=== PATIENT | male | born 1950 | race Caucasian/White ===

== ENCOUNTER 2022-01-17 07:00 | Observation (INO) | payer MEDICARE ==
[2022-01-13 11:00] VITALS: BMI 29.8
[2022-01-17] MEDS ORDERED: Vancomycin HCl 1.5 GM in Sodium Chloride 0.9% 250 ML 300 ML IVPB SCH (08:00)
[2022-01-17] MEDS ORDERED: Tranexamic Acid 1,000 MG/10 ML VIAL ONE (08:05)
[2022-01-17] MEDS ORDERED: Sodium Chloride 0.9% 100 ML ONE (08:05)
[2022-01-17] MEDS ORDERED: Midazolam HCl 2 mg/2 ml Vial ONE ×2 (08:41→09:10)
[2022-01-17] MEDS ORDERED: Fentanyl 100 MCG/2 ML VIAL ONE ×6 (09:06→12:53)
[2022-01-17] MEDS ORDERED: ceFAZolin (BATCH) 2 GM/100 ML BAG ONE (09:11)
[2022-01-17] MEDS ORDERED: Bupivacaine 0.25% HCL 30 ML VIAL ONE (09:11)
[2022-01-17] MEDS ORDERED: Ketorolac Tromethamine 30 MG/ML VIAL ONE (09:23)
[2022-01-17] MEDS ORDERED: Dexamethasone 20 MG/5 ML VIAL ONE (09:23)
[2022-01-17] MEDS ORDERED: Ropivacaine 0.5% HCl/PF (150 MG/30 ML VIAL) ONE (09:23)
[2022-01-17] MEDS ORDERED: Lidocaine 1% PF 5 ML VIAL ONE (09:23)
[2022-01-17] MEDS ORDERED: Ondansetron PF 4 MG/2 ML Vial ONE (09:23)
[2022-01-17] MEDS ORDERED: Promethazine HCl 25 MG/ML VIAL IM PRN ×3 (10:00→10:58)
[2022-01-17] MEDS ORDERED: HYDROcodone/Acetaminophen 10/325 mg Tablet PO PRN ×2 (10:00→10:53)
[2022-01-17] MEDS ORDERED: Ropivacaine 0.2% 550 ML 550 ML NERVE BLCK SCH (10:00)
[2022-01-17] MEDS ORDERED: Zolpidem Tartrate 5 MG TAB PO PRN ×3 (10:00→11:38)
[2022-01-17] MEDS ORDERED: Ondansetron PF 4 MG/2 ML Vial IVP PRN ×2 (10:00→10:52)
[2022-01-17] MEDS ORDERED: traMADol HCl 50 MG TAB PO PRN ×2 (10:00)
[2022-01-17] MEDS ORDERED: diphenhydrAMINE 25 MG CAP PO PRN (10:52)
[2022-01-17] MEDS ORDERED: Acetaminophen 325 MG TAB PO PRN (10:52)
[2022-01-17] MEDS ORDERED: Ondansetron HCl/PF 4 MG/2 ML Vial IVP PRN (10:58)
[2022-01-17] MEDS ORDERED: Promethazine HCl 25 MG/ML VIAL IVPB PRN (10:58)
[2022-01-17] MEDS ORDERED: HYDROmorphone 2 MG/ML VIAL SLOW IVP PRN (10:58)
[2022-01-17] MEDS ORDERED: HYDROmorphone 0.5 MG/0.5 ML SYRINGE ONE ×4 (11:25→12:23)
[2022-01-17] MEDS ORDERED: Dextrose 5% in Water 1,000 ML IV PRN (11:45)
[2022-01-17] MEDS ORDERED: Dextrose 50% Abboject 50 ML SYRINGE IVP PRN (11:45)
[2022-01-17] MEDS: HumaLOG 300 UNITS/3 ML VIAL SC SCH ×2 (13:54→17:51)
[2022-01-17] MEDS: Sodium Chloride 0.9% 1,000 ML IV SCH ×2 (14:00→20:05)
[2022-01-17] MEDS: HYDROcodone/Acetaminophen 10/325 mg Tablet PO PRN ×3 (14:01→23:08)
[2022-01-17] MEDS: CEFAZOLIN 2 GM, Admixture Fee 1 EACH in Sodium Chloride 0.9% 100 ML IVPB SCH (17:20)
[2022-01-17] MEDS: Fentanyl 100 MCG/2 ML VIAL SLOW IVP PRN ×2 (20:02→21:13)
[2022-01-17] MEDS: Aspirin 81 mg Enteric Coated Tablet PO SCH (20:05)
[2022-01-17] MEDS: Atorvastatin Calcium 20 MG TAB PO SCH (20:05)
[2022-01-17] MEDS ORDERED: Senokot 8.6 MG TAB PO SCH (21:45)
[2022-01-18] MEDS ORDERED: hydrALAZINE 20 MG/ML VIAL SLOW IVP PRN (00:32)
[2022-01-18] MEDS ORDERED: Labetalol HCl 100 MG/20 ML VIAL SLOW IVP PRN (01:03)
[2022-01-18] MEDS: CEFAZOLIN 2 GM, Admixture Fee 1 EACH in Sodium Chloride 0.9% 100 ML IVPB SCH (02:13)
[2022-01-18] MEDS: Fentanyl 100 MCG/2 ML VIAL SLOW IVP PRN (02:13)
[2022-01-18 03:27] LABS: Bacteria/HPF None Seen HPF (None Seen); Bilirubin Negative (Negative); Blood, Urine Negative (Negative); Clarity Clear (Clear); Glucose, Urine (Dipstick) 200 mg/dL (Negative); Ketone, Urine Negative (Negative); Leukocyte Negative Leu/uL (Negative); Nitrite Negative (Negative); Protein, Urine (Dipstick) Negative (Neg-Trace); Specific Gravity, Urine 1.024 (1.002-1.036); Squamous Epithelial None Seen HPF (0-3); Urobilinogen Normal mg/dL (Less than 2); WBC/HPF 0-3 HPF (0-3)
[2022-01-18 03:30] LABS: Urine Culture Reflex No No
[2022-01-18] MEDS ORDERED: diphenhydrAMINE 25 MG CAP PO PRN (03:30)
[2022-01-18] MEDS ORDERED: Ondansetron PF 4 MG/2 ML Vial IVP PRN (03:30)
[2022-01-18] MEDS ORDERED: Zolpidem Tartrate 5 MG TAB PO PRN (03:30)
[2022-01-18] MEDS ORDERED: diphenhydrAMINE 50 MG/ML VIAL IM/IV PRN (03:30)
[2022-01-18] MEDS ORDERED: Promethazine HCl 25 MG/ML VIAL IM PRN (03:30)
[2022-01-18] MEDS ORDERED: Naloxone HCl 0.4 mg/ml Vial IV PRN (03:30)
[2022-01-18] MEDS: Fentanyl CADD 100 ML IVPB SCH ×2 (03:48→21:23)
[2022-01-18 05:15] LABS: Hemoglobin 11.4 g/dL (14.0-18.0); Mean Corpuscular HGB CONC 33.8 g/dL (32.0-36.0); Mean Corpuscular Hemoglobin 31.6 pg (27.0-31.0); Mean Corpuscular Volume 93.6 fL (78.0-98.0); Mean Platelet Volume 7.9 fL (7.4-10.4); Platelet Count 78 thou/uL (130-400); RBC Distribution Width 11.6 % (11.5-14.5); White Blood Cell (WBC) Count 8.1 thou/uL (4.8-10.8)
[2022-01-18] MEDS: Sodium Chloride 0.9% 1,000 ML IV SCH ×3 (05:26→23:44)
[2022-01-18] MEDS ORDERED: HumaLOG 300 UNITS/3 ML VIAL SC PRN (06:15)
[2022-01-18] MEDS: HumaLOG 300 UNITS/3 ML VIAL SC PRN ×3 (06:22→18:19)
[2022-01-18] MEDS ORDERED: Senokot 8.6 MG TAB PO SCH (09:00)
[2022-01-18] MEDS ORDERED: Senokot S 8.6-50 MG TAB PO SCH (09:00)
[2022-01-18] MEDS: HumuLIN 70/30 (300 UNITS/3 ML VIAL) SC SCH (09:59)
[2022-01-18] MEDS: Meloxicam 7.5 MG TAB PO SCH (10:01)
[2022-01-18] MEDS: Ferrous Gluconate 324 MG TAB PO SCH ×2 (10:01→21:22)
[2022-01-18] MEDS: Multivitamin W/ Minerals 1 TAB PO SCH (10:01)
[2022-01-18] MEDS: Alogliptin 25 MG TAB PO SCH (10:01)
[2022-01-18] MEDS: Aspirin 81 mg Enteric Coated Tablet PO SCH ×2 (10:02→21:23)
[2022-01-18] MEDS: HumaLOG 300 UNITS/3 ML VIAL SC SCH ×3 (10:02→18:19)
[2022-01-18] MEDS: Acetaminophen 325 MG TAB PO SCH ×2 (18:17→23:43)
[2022-01-18] MEDS: Atorvastatin Calcium 20 MG TAB PO SCH (21:23)
[2022-01-19] MEDS: Acetaminophen 325 MG TAB PO SCH (05:29)
[2022-01-19 05:30] LABS: #Eosinphils 0.1 thou/uL (0.0-0.7); #Monocytes 0.7 thou/uL (0.11-0.59); #Neutrophils 6.1 thou/uL (1.40-6.50); %Basophils 0.1 % (0.0-1.0); %Eosinophils 1.2 % (0.0-10.0); %Lymphocytes 12.4 % (21.0-51.0); %Monocytes 9.3 % (0.0-10.0); %Neutrophils 77.1 % (42.0-75.0); Hemoglobin 10.6 g/dL (14.0-18.0); Mean Corpuscular HGB CONC 33.8 g/dL (32.0-36.0); Mean Corpuscular Hemoglobin 31.6 pg (27.0-31.0); Mean Corpuscular Volume 93.6 fL (78.0-98.0); Mean Platelet Volume 7.7 fL (7.4-10.4); Platelet Count 82 thou/uL (130-400); RBC Distribution Width 11.7 % (11.5-14.5); Red Blood Cell (RBC) Count 3.34 mill/uL (4.70-6.10); White Blood Cell (WBC) Count 7.9 thou/uL (4.8-10.8)
[2022-01-19] MEDS: HumaLOG 300 UNITS/3 ML VIAL SC PRN (05:35)
[2022-01-19] MEDS: Meloxicam 7.5 MG TAB PO SCH (08:53)
[2022-01-19] MEDS: Aspirin 81 mg Enteric Coated Tablet PO SCH (08:53)
[2022-01-19] MEDS: Multivitamin W/ Minerals 1 TAB PO SCH (08:53)
[2022-01-19] MEDS: Ferrous Gluconate 324 MG TAB PO SCH (08:54)
[2022-01-19] MEDS: Alogliptin 25 MG TAB PO SCH (08:55)
[2022-01-19] MEDS: HumuLIN 70/30 (300 UNITS/3 ML VIAL) SC SCH (09:05)
[2022-01-19] MEDS: HumaLOG 300 UNITS/3 ML VIAL SC SCH (09:33)
[2022-01-19] MEDS ORDERED: HYDROcodone/Acetaminophen 10/325 mg Tablet PO PRN (09:58)
[2022-01-19 11:33] VITALS: BP 156/74; TEMP 98.8
== END 2022-01-19 11:45 | disposition home or self-care (01) ==
LOC: SDC 07:00 → SURG A 10:52 → SDC 01-18 01:03 → SURG A 01-18 01:03
PROVIDERS: ADMIT Orthopaedic Surgery; ATTEND Orthopaedic Surgery
PROC: 0SRC0J9 Replacement of Right Knee Joint with Synthetic Substitute, Cemented, Open Approach (ICD-10-PCS; principal; 2022-01-17)
DX: M17.11 Unilateral primary osteoarthritis, right knee (principal); I10 Essential (primary) hypertension; E11.9 Type 2 diabetes mellitus without complications; E78.5 Hyperlipidemia, unspecified; E83.119 Hemochromatosis, unspecified; D69.6 Thrombocytopenia, unspecified; Z79.4 Long term (current) use of insulin; Z79.84 Long term (current) use of oral hypoglycemic drugs; Z79.899 Other long term (current) drug therapy
CPT/HCPCS: 27447; 73560; 81001; 82962 ×3; 85025; 85027; 96365; 96375; 96376 ×2; 97110 ×3; 97116 ×2; 97139 ×3; 97530; A4306; C1713; C1776; G0378 ×3; J3010; 36415; 36416; J0690; J1100; J1170; J1815; J1885; J2250; J2405; J2795; J3370; J3490; J7050; S0020